=== PATIENT | female | born 1975 | race Caucasian/White ===

== ENCOUNTER 2019-02-13 06:25 | Day surgery (SDC) | payer OTHER ==
[~2019-02-13] VITALS: Ht 157.5 cm; Wt 65.9 kg
[~2019-02-13 06:25] MED LIST: SODIUM CHLORIDE 0.9% 1,000 ML IV ONE
[2019-02-13] MEDS ORDERED: LIDOCAINE 2% 5 ML JELLY TP ONE (06:26)
[2019-02-13] MEDS ORDERED: ALBUTEROL SULFATE 2.5 MG/0.5 ML NEB SOLUTION NEB ONE (06:26)
[2019-02-13] MEDS ORDERED: BENZOCAINE 20% 50 MCG/SPRAY 57 GM TP ONE (06:26)
[2019-02-13] MEDS ORDERED: FentaNYL CITRATE-PF 100 MCG/2 ML VIAL ONE (07:47)
[2019-02-13] MEDS ORDERED: MIDAZOLAM HCL 2 MG/2 ML VIAL ONE (07:47)
[2019-02-13 08:01] LABS: GLUCOMETER DEV NAME(LOC) SDS.; GLUCOSE,POINT OF CARE 162 MG/DL (70-110)
[2019-02-13] MEDS ORDERED: METF-960 PO (08:14)
[2019-02-13] MEDS ORDERED: CITA10TA68 PO (08:14)
[2019-02-13] MEDS ORDERED: ATOR10TA84 PO (08:14)
[2019-02-13] MEDS ORDERED: HYDR200T4 PO (08:14)
[2019-02-13] MEDS ORDERED: AZAT50TA35 PO (08:14)
[2019-02-13] MEDS ORDERED: MethylPREDNISolone SOD SUCC 125 MG/2 ML VIAL IVP ONE (09:30)
[2019-02-13] MEDS ORDERED: MethylPREDNISolone SOD SUCC 125 MG/2 ML VIAL ONE (09:41)
[2019-02-13] MEDS ORDERED: OXYGEN THERAPY IH SCH (20:00)
== END 2019-02-13 11:00 | disposition home or self-care (01) ==
LOC: SURGERY 06:25
PROVIDERS: ATTEND Internal Medicine Critical Care Medicine
DX: J38.4 Edema of larynx (principal); B37.0 Candidal stomatitis; J45.909 Unspecified asthma, uncomplicated; J98.8 Other specified respiratory disorders; E11.9 Type 2 diabetes mellitus without complications; Z79.899 Other long term (current) drug therapy; Z90.721 Acquired absence of ovaries, unilateral; Z98.890 Other specified postprocedural states
CPT/HCPCS: 31623; 31624; 71045; 82962; 84703; 87015; 87070; 87101; 87205; 87206; 87220; 88108; 88312; J2250; J2930; J3010; J7030